=== PATIENT | male | born 1975 | race Caucasian/White ===

== ENCOUNTER 2018-04-25 19:23 | Emergency (ER) | payer OTHER ==
--- NOTE | 2018-04-25 20:44 | EDM.PDOC ---
ED HPI GENERAL MEDICAL PROBLEM - General Chief Complaint: Lower Extremity Injury/Pain Stated Complaint: RIGHT KNEE INJURY Time Seen by Provider: 04/25/18 19:53 Source of Information: Reports: Patient History Limitations: Reports: No Limitations - History of Present Illness INITIAL COMMENTS - FREE TEXT/NARRATIVE: Patient presents with right knee pain after injury at work today. He was stepping up with right leg when he felt a pop and instant pain in medial right knee. Since then he has been unable to put weight on it without pain. He denies any problems with the knee previously. - Related Data Allergies Allergy/AdvReac Type Severity Reaction Status Date / Time No Known Drug Allergies Allergy Cannot Verified 04/25/18 19:33 Remember Home Meds: Home Meds . [No Known Home Meds] 04/25/18 [History] Past Medical History - Past Health History Medical/Surgical History: Denies Medical/Surgical History Social & Family History - Tobacco Use Smoking Status *Q: Current Every Day Smoker Years of Tobacco use: 15 Packs/Tins Daily: 0.5 Second Hand Smoke Exposure: Yes - Caffeine Use Caffeine Use: Reports: Soda - Alcohol Use Days Per Week of Alcohol Use: 2 Number of Drinks Per Day: 2 Total Drinks Per Week: 4 - Recreational Drug Use Recreational Drug Use: No Review of Systems - Review of Systems Review Of Systems: See Below Constitutional: Denies: Chills, Fever Eyes: Reports: No Symptoms Ears: Reports: No Symptoms Nose: Reports: No Symptoms Mouth/Throat: Reports: No Symptoms Respiratory: Reports: No Symptoms. Denies: Shortness of Breath Cardiovascular: Reports: No Symptoms. Denies: Syncope GI/Abdominal: Reports: No Symptoms Musculoskeletal: Denies: Neck Pain, Shoulder Pain, Arm Pain, Back Pain, Hand Pain, Foot Pain Skin: Denies: Cyanosis, Jaundice, Mottled, Pallor, Diaphoresis Neurological: Denies: Confusion, Dizziness, Seizure, Syncope ED EXAM, GENERAL - Physical Exam Exam: See Below Exam Limited By: No Limitations General Appearance: Alert, WD/WN, No Apparent Distress Eye Exam: Bilateral Eye: EOMI, Normal Inspection, PERRL Ears: Normal External Exam, Hearing Grossly Normal Nose: Normal Inspection, No Blood Throat/Mouth: Normal Inspection, Normal Lips, Normal Voice, No Airway Compromise Head: Atraumatic, Normocephalic Neck: Normal Inspection, Full Range of Motion Respiratory/Chest: No Respiratory Distress, Lungs Clear, Normal Breath Sounds, No Accessory Muscle Use Cardiovascular: Regular Rate, Rhythm, No Murmur, No Rub GI/Abdominal: No Distention Extremities: No Pedal Edema, Other (Right knee exam reveals pain at the joint with palpation over the medial retinaculum. The MCL is non-tender to palpation or varus/valgus stress. Anterior drawer is negative. Patella is non-tender and freely movable as normal. Lateral knee is non-tender. No effusion, swelling, ecchymosis, lacerations, abrasions or erythema. Three inches inferior to medial knee there is a 1.5 cm dark, raised lesion that is non- tender. Patient says this started as a pimple a couple years ago and grew slowly. I advised he get into his PCP soon to check and possibly biopsy it.) Neurological: Alert, Oriented, Normal Cognition, No Motor/Sensory Deficits Psychiatric: Normal Affect, Normal Mood Skin Exam: Warm, Dry, Intact, Normal Color, No Rash Course - Vital Signs Last Recorded V/S: Last Vital Signs Temp 98 F 04/25/18 19:35 Pulse 66 04/25/18 19:35 Resp 18 04/25/18 19:35 BP 155/87 H 04/25/18 19:35 Pulse Ox 98 04/25/18 19:35 - Orders/Labs/Meds Orders: Active Orders 24 hr Category Date Time Status Knee 3V Bi [CR] Stat Exams 04/25/18 19:43 Taken - Re-Assessments/Exams Free Text/Narrative Re-Assessment/Exam: 04/25/18 20:50 Xrays show no evidence of fracture or other bony pathology. We tried a couple knee immobilizers but neither provided significant relief of pain with weight bearing. He did decide to take the smaller of the two and has crutches he can borrow from a friend so declined a set from ER today. I advised orthopedic evaluation if this isn't improving in a week but he may want to see them sooner so he can get back to work earlier. Patient discharged in stable condition. Departure - Departure Time of Disposition: 20:37 Disposition: Home, Self-Care 01 Condition: Good Clinical Impression: Right medial knee pain - Discharge Information Instructions: Knee Pain, Adult Referrals: PCP,Not In Area [Primary Care Provider] - Additional Instructions: 1. Avoid activities that cause knee pain. 2. Wear the knee brace if it helps with pain or support of knee. 3. Use crutches to avoid putting weight on right leg as needed to avoid pain. 4. Use Ibuprofen 400-600 mg three times a day as needed. 5. Follow up with orthopedic doctor in the next few days, especially if it isn' t getting better. - My Orders Last 24 Hours: My Active Orders 04/25/18 19:43 Knee 3V Bi [CR] Stat - Assessment/Plan Last 24 Hours: My Active Orders 04/25/18 19:43 Knee 3V Bi [CR] Stat
== END 2018-04-25 20:55 | disposition home or self-care (01) ==
LOC: KA.ED 19:23
DX: M25.561 Pain in right knee (principal); F17.210 Nicotine dependence, cigarettes, uncomplicated
CPT/HCPCS: 73562-50; 99283